=== PATIENT | female | born 1950 | race Asian ===

== ENCOUNTER 2025-05-30 18:47 | Emergency (ER) | payer MEDICARE, SELFPAY ==
[2025-05-30 18:51] VITALS: BP 140/98; PULSE 59; RESP 16; TEMP 37.1; O2SAT 100
--- NOTE | 2025-05-30 19:16 | DI.CT_ITS ---
Exam(s) CT HEAD CERVICAL SPINE WO EXAM: CT HEAD CERVICAL SPINE WO CLINICAL HISTORY: fall, HI, feels dizzy. TECHNIQUE: Imaging Protocol: Axial computed tomography images with coronal and sagittal reformatted images were created and reviewed COMPARISON: No exams were available for comparison FINDINGS: BRAIN: There are no skull fractures nor fluid in the visualized paranasal sinuses. There is no evidence of intracranial hemorrhage, mass effect, or shift of midline structures. There are no extra-axial fluid collections. The ventricles are not enlarged or shifted and there is no blood within the ventricular system nor within the basal cisterns. CERVICAL SPINE: There is no evidence of fracture nor listhesis. No significant prevertebral soft tissue swelling. There is moderate disc space narrowing at C5-6 and C6-7 levels. There are no large Luschka joint osteophytes at these levels Other disc spaces exhibit normal height. There is some calcification in the supraspinous ligament at C5 level. Facet joints exhibit some degenerative change at C3-4 level other right-sided. There is no facet malalignment. There is no significant facet joint malalignment. No significant osseous lesions evident. IMPRESSION: No acute intracranial findings on this noninfused CT scan of the brain. No evidence of cervical spine fracture, malalignment, nor acute compromise of the cervical spinal canal. Degenerative disc disease at C5-6 and C6-7 levels. RADIATION DOSE DELIVERED: 1,117.68mGy.cm Total DLP DATA REPOSITORY: All CT scans at this facility are submitted to the National Radiology Data Registry (NRDR) Dose Index Registry (DIR) with the [employer] ([employer]). RADIATION OPTIMIZATION: All CT scans at this facility use at least one of these dose optimization techniques: automated exposure control; mA and/or kV adjustment per patient size (includes targeted exams where dose is matched to clinical indication); or iterative reconstruction.
--- NOTE | 2025-05-30 19:51 | DI.VRAD_ITS ---
PROCEDURE INFORMATION: Exam: CT Head Without Contrast Exam date and time: 05/30/2025 7:08 PM Age: 75 years old Clinical indication: Injury or trauma; Blunt trauma (contusions or hematomas); Consciousness not specified; Injury date: 05/30/25; Injury details: Fell on concrete; Fall, hi, feels dizzy TECHNIQUE: Imaging protocol: Computed tomography of the head without contrast. Radiation optimization: All CT scans at this facility use at least one of these dose optimization techniques: automated exposure control; mA and/or kV adjustment per patient size (includes targeted exams where dose is matched to clinical indication); or iterative reconstruction. COMPARISON: No relevant prior studies available. FINDINGS: Brain: Mild volume loss No hemorrhage. Mild white matter disease. No mass effect. Cerebral ventricles: No ventriculomegaly. Paranasal sinuses: Visualized sinuses are unremarkable. No fluid levels. Mastoid air cells: Visualized mastoid air cells are well aerated. Bones: Unremarkable. No acute fracture. Soft tissues: Unremarkable. IMPRESSION: No acute intracranial hemorrhage PROCEDURE INFORMATION: Exam: CT Cervical Spine Without Contrast Exam date and time: 05/30/2025 7:08 PM Age: 75 years old Clinical indication: Injury or trauma; Blunt trauma (contusions or hematomas); Consciousness not specified; Injury date: 05/30/25; Injury details: Fell on concrete; Fall, hi, feels dizzy TECHNIQUE: Imaging protocol: Computed tomography of the cervical spine without contrast. Radiation optimization: All CT scans at this facility use at least one of these dose optimization techniques: automated exposure control; mA and/or kV adjustment per patient size (includes targeted exams where dose is matched to clinical indication); or iterative reconstruction. COMPARISON: No relevant prior studies available. FINDINGS: Bones: No acute fracture. Mild lordosis straightening. No severe spinal canal stenosis. No significant neural foraminal narrowing. Lungs: Mild apical scarring Soft tissues: Unremarkable. IMPRESSION: No acute cervical spine fracture. Straightening of the cervical lordosis may be positional or related to muscle spasm. Dictated and Authenticated by: Juan Diego Villasenor MD. Orderin Ayleen Larson MD
--- NOTE | 2025-05-30 22:38 | ED.GENADUL_ITS ---
Discharge Plan Disposition Patient Disposition: Home Discharge Details Clinical Impression: Head injury Primary Care Provider: Radha,Local ED Provider: Marsha Abbasi Discharge Instructions Instructions: Minor Head Injury, Adult ED Additional Instructions: your cat scans are reassuring and there is no evidence of bleeding please stay hydrated and rest the next few days should you develop worsening headache, dizziness, or vomiting, please present for reassessment you may have a mild concussion, please refrain from driving if you feel lightheaded, nauseous, or develop a headache HPI General Date/Time Provider Initiated Documentation: 05/30/25 18:50 . HPI Narrative: 75-year-old healthy female presents after a mechanical fall. She was running with her grandkids, lost balance, and fell, hitting her head on concrete at 1730 hours. No loss of consciousness. Ambulatory with steady gait. No nausea, headache, neck pain, or changes in strength or sensation. Not on anticoagulant therapy. Related Data Allergies Allergy/AdvReac Type Severity Reaction Status Date / Time No Known Allergies Allergy Verified 05/30/25 18:57 General Stated Complaint: HeadInjury DWAYNE: 3 Exam Narrative Exam Narrative: General Appearance: Alert and oriented. Vital signs: Within normal limits. HEENT: Pupils equal, round, reactive to light and accommodation. No hemotympanum. Respiratory: Within normal limits. Cardiovascular: Cardiac rate rhythm regular Gastrointestinal: No abdominal tenderness or visible evidence of trauma, no CVA tenderness no thoracic or lumbar spine tenderness Back, Musculoskeletal: No cervical spine tenderness. Extremities: Small forearm abrasion, neurovascularly intact. Skin: Warm and dry, no rash. Neurological: GCS 15. Psychiatric: Other observations: Ambulatory with steady gait. Course Vital Signs Vital signs: Vital Signs Temperature 37.1 C 05/30/25 18:51 Pulse 59 L 05/30/25 18:51 Respiratory Rate 16 05/30/25 18:51 Blood Pressure 140/98 H 05/30/25 18:51 Pulse Oximetry 100 05/30/25 18:51 Temperature 37.1 C 05/30/25 18:51 Temperature Source Tympanic 05/30/25 18:51 Pulse 59 L 05/30/25 18:51 Respiratory Rate 16 05/30/25 18:51 Respiratory Effort Normal, Non-Labored 05/30/25 19:44 Respiratory Depth Normal 05/30/25 19:44 Respiratory Pattern Normal 05/30/25 19:44 Blood Pressure 140/98 H 05/30/25 18:51 Blood Pressure Position Sitting 05/30/25 18:51 Pulse Oximetry 100 05/30/25 18:51 Oxygen Delivery Method Room Air 05/30/25 18:51 Oxygen Flow Rate 0 05/30/25 18:51 Pain Level 2 05/30/25 18:51 Medical Decision Making - Imaging (CT head and cervical spine): - No acute abnormality Initial Assessment: 75-year-old healthy female presents after a mechanical fall while running with her grandkids, hitting her head on concrete. No loss of consciousness, nausea, headache, neck pain, or changes in strength or sensation. Ambulatory with steady gait. Alert and oriented. GCS 15. Pupils equal, round, reactive to light and accommodation. No hemotympanum. No cervical spine tenderness. Small abrasion on forearm, neurovascularly intact. ED Course: - CT head and cervical spine ordered for further evaluation. - CT head and cervical spine per radiology, read by me, show no acute abnormality. - Encouraged to treat likely concussion. - Advised to refrain from driving or activities that could harm until symptoms wes. - Return precautions for headache, nausea, or lightheadedness. Final Assessment: CT head and cervical spine show no acute abnormality. Low clinical suspicion for concussion. Patient advised to refrain from driving or activities that could harm until symptoms wes. Follow-up with PCP next week. Clinical Impression: - Mechanical fall - Likely concussion Disposition: - Discharge home - Follow-Up: Recheck with primary care physician next week Patient Education: Advised to refrain from driving or activities that could harm until symptoms wes. Return precautions for headache, nausea, or lightheadedness. MDM Components Evaluation: - Number of Differential Diagnoses or Management Options: Likely concussion - Amount and Complexity of Data Reviewed: CT head and cervical spine - Risk of Complication and Morbidity or Mortality: Low clinical suspicion for concussion based on symptoms PFSH All Active Problems (Updated 05/30/25 @ 20:01 by DIEGO Polanco) Head injury (Acute) Social History Smoking/Tobacco Use Status: Never Smoking risk assessment performed?: Yes Alcohol Intake: current Alcohol Intake frequency: holidays/special occasions only Substance use type: does not use Housing: house Do you feel safe at home: Yes Do you feel safe in your relationship?: Yes
== END 2025-05-30 20:08 | disposition home or self-care (01) ==
LOC: ER 20:41
PROVIDERS: Emergency Provider Physician Assistant
DX: S09.8XXA Other specified injuries of head, initial encounter (principal); Y93.02 Activity, running; Y92.017 Garden or yard in single-family (private) house as the place of occurrence of the external cause
CPT/HCPCS: 99284; 70450; 72125